=== PATIENT | female | born 1990 | race African-American/Black ===

== ENCOUNTER 2023-06-11 05:57 | Emergency (ER) | payer MEDICAID ==
[~2023-06-11] VITALS: Ht 144.8 cm; Wt 85.0 kg
[2023-06-11 06:06] VITALS: O2SAT 99
[2023-06-11 07:08] VITALS: BP 107/63; PULSE 79; RESP 17; TEMP 98.4
[2023-06-11] MEDS ORDERED: METH-1182 PO (08:54)
== END 2023-06-11 09:12 | disposition home or self-care (01) ==
LOC: ER 05:57
DX: S86.912A Strain of unspecified muscle(s) and tendon(s) at lower leg level, left leg, initial encounter (principal); S86.911A Strain of unspecified muscle(s) and tendon(s) at lower leg level, right leg, initial encounter; Z79.899 Other long term (current) drug therapy; X58.XXXA Exposure to other specified factors, initial encounter; Y93.89 Activity, other specified; Y92.89 Other specified places as the place of occurrence of the external cause; Y99.8 Other external cause status
CPT/HCPCS: 93970